=== PATIENT | male | born 1975 | race Caucasian/White ===

== ENCOUNTER 2023-05-08 11:43 | Emergency (ER) | payer OTHER, SELFPAY ==
[2023-05-08] VITALS (14 sets, daily range): BP systolic 148–176; BP diastolic 88–122; PULSE 76–83; RESP 11–21; TEMP 36.8; O2SAT 91–98; BMI 32.3
--- NOTE | 2023-05-08 11:54 | XR_ITS ---
The [address] [address] Patient Name: SHEEBA LOCKHART MRN: [id number] date: 1975 Sex: M Assigned Patient Location: ED.MAIN Current Patient Location: ER Accession/Order Number: [id number] Exam Date: 05/08/2023 12:48 Report Date: 05/08/2023 13:23 At the request of: MARTITA ESPINOZA Procedure: XR ribs RT min 3V w CXR1V EXAMINATION: XR ribs RT min 3V w CXR1V 05/08/2023 10:20 AM PDT HISTORY: pain after stretching COMPARISONS: None. FINDINGS: Lines and tubes: None. Heart and mediastinum: The heart and the mediastinum are normal for technique. Lungs and pleura: Mild atelectasis and/or scarring at the left costophrenic angle. No pulmonary edema. There is no pleural effusion or pneumothorax. Bones: No acute osseous abnormality. RIGHT RIBS: No displaced rib fracture. Miscellaneous: Calcification projecting over the left kidney measuring 7 mm. XR/XR ribs RT min 3V w CXR1V IMPRESSION: 1. Mild atelectasis and/or scarring at the left costophrenic angle. 2. No displaced rib fracture on the right. 3. There is a 7 mm calcification projecting of the left kidney which could represent a kidney stone. Electronically authenticated by: YAMINI ALBARADO Date: 05/08/2023 13:23
--- NOTE | 2023-05-08 13:27 | ED.CHESTPAI1 ---
HPI - Chest Pain General Chief Complaint: Chest Pain Stated Complaint: CHEST PAIN Time Seen by Provider: 05/08/23 11:50 Source: patient Mode of arrival: walk-in History of Present Illness HPI narrative: 47-year-old male presents for pain in his right chest. It started today when he was stretching with his arms above his head. He did not fall and nothing struck him in his chest. It's worse in certain positions. No fever or cough or back pain. No pain on the left side. Related Data Home Medications Medication Instructions Recorded Confirmed No Known Home Medications 05/08/23 05/08/23 Allergies Allergy/AdvReac Type Severity Reaction Status Date / Time No Known Drug Allergies Allergy Verified 05/08/23 11:46 Review of Systems ROS Narrative A ten point review of systems is negative except as noted above. Exam Narrative Exam Narrative: Nurses note and vital signs reviewed and patient is not hypoxic. General: The patient appears well and in no apparent distress. Patient is resting comfortably on cart. Skin: Warm, dry, no pallor noted. There is no rash noted. Head: Normocephalic, atraumatic Eye: Normal conjunctiva, no drainage Ears, Nose, Mouth, and Throat: oral mucosa is moist. Nares patent. Cardiovascular: Regular Rate and Rhythm Respiratory: Patient is in no distress, no accessory muscle use, lungs are clear to auscultation, no wheezing, rales or rhonchi; no chest wall crepitus bruise rash or abrasion. Back: non-tender GI: Normal bowel sounds, no tenderness to palpation, no masses appreciated. No rebound, guarding, or rigidity noted. Musculoskeletal: The patient has no evidence of calf tenderness, no pitting edema, symmetrical pulses noted bilaterally Neurological: A&O, normal speech Psychiatric: Cooperative Constitutional Vital Signs, click to edit/add: Last Vital Signs Temp 98.2 F 05/08/23 11:46 Pulse 82 05/08/23 11:46 Resp 20 05/08/23 11:46 BP 155/122 H 05/08/23 11:46 Pulse Ox 98 05/08/23 11:46 O2 Del Method Room Air 05/08/23 11:46 Course Vital Signs Vital signs: Vital Signs Temperature 98.2 F 05/08/23 11:46 Pulse Rate 82 05/08/23 11:46 Respiratory Rate 20 05/08/23 11:46 Blood Pressure 155/122 H 05/08/23 11:46 Pulse Oximetry 98 05/08/23 11:46 Oxygen Delivery Method Room Air 05/08/23 11:46 Temperature 98.2 F 05/08/23 11:46 Pulse Rate 82 05/08/23 11:46 Respiratory Rate 20 05/08/23 11:46 Blood Pressure 155/122 H 05/08/23 11:46 Pulse Oximetry 98 05/08/23 11:46 Oxygen Delivery Method Room Air 05/08/23 11:46 MDM - Chest Pain MDM Narrative Medical decision making narrative: rib x-rays are negative and he was recommended ice and Motrin. No evidence of pneumothorax. Treatment diagnosis and follow-up were discussed with the patient Differential Diagnosis Differential diagnosis: Likely fracture of rib, pneumothorax and other (chest wall muscle strain) Imaging Data right ribs: Radiologist's impression: no acute findings Discharge Plan Discharge Chief Complaint: Chest Pain Clinical Impression: Acute chest wall pain Patient Disposition: Home, Self-Care Time of Disposition Decision: 13:27 Condition: Good Mode of Transportation: Private Vehicle Prescriptions / Home Meds: No Action No Known Home Medications Instructions: Chest Wall Pain (ED) Stand Alone Forms: Portal Instructions Referrals: Physician,Non-Staff, MD [Primary Care Provider] - 1 week
--- NOTE | 2023-05-08 14:52 | ECG_ITS ---
The 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
== END 2023-05-08 13:37 | disposition home or self-care (01) ==
PROVIDERS: Emergency Provider Emergency Medicine
DX: R07.89 Other chest pain (principal)
CPT/HCPCS: 71101; 93005; 99283

== ENCOUNTER 2023-05-30 09:53 | Emergency (ER) | payer SELFPAY ==
[2023-05-30 09:57] VITALS: BP 138/93; PULSE 91; RESP 18; TEMP 36.8; O2SAT 98; BMI 35.6
--- NOTE | 2023-05-30 10:25 | ED.SKABFB1 ---
HPI - Skin/Abscess/Foreign Bdy General Chief complaint: Skin/Abscess/Foreign Body Stated complaint: LUMP UNDER RIGHT ARMPIT Time Seen by Provider: 05/30/23 10:12 Source: patient Mode of arrival: walk-in History of Present Illness HPI narrative: This patient's here with complaint of a sore tender swollen red area underneath his right axillary area. He has no history of diabetes. He's not had previous MRSA infections. He says occasionally he gets skin infections but they usually drain on their own. He is not on any new medication. He has not had a fever shakes or chills.no lightheadedness nausea vomiting or shortness of breath Related Data Home Medications Medication Instructions Recorded Confirmed No Known Home Medications 05/08/23 05/08/23 Allergies Allergy/AdvReac Type Severity Reaction Status Date / Time No Known Drug Allergies Allergy Verified 05/08/23 11:46 PFSH PFSH Social History Smoking status: Current every day smoker Exam Narrative Exam Narrative: awake alert pleasant vital signs are stable. Does not appear ill. Problem focused examination of the extremity The right axillary area has a 5 x 3 tender fluctuant pointing sensitive area in the middle of the axillary area. There is no lymphangitis. The upper pectoral area is unremarkable. Joint range of motion and examination are normal. Constitutional Vital Signs, click to edit/add: Last Vital Signs Temp 98.3 F 05/30/23 09:57 Pulse 91 H 05/30/23 09:57 Resp 18 05/30/23 09:57 BP 138/93 H 05/30/23 09:57 Pulse Ox 98 05/30/23 09:57 Course Vital Signs Vital signs: Vital Signs Temperature 98.3 F 05/30/23 09:57 Pulse Rate 91 H 05/30/23 09:57 Respiratory Rate 18 05/30/23 09:57 Blood Pressure 138/93 H 05/30/23 09:57 Pulse Oximetry 98 05/30/23 09:57 Temperature 98.3 F 05/30/23 09:57 Pulse Rate 91 H 05/30/23 09:57 Respiratory Rate 18 05/30/23 09:57 Blood Pressure 138/93 H 05/30/23 09:57 Pulse Oximetry 98 05/30/23 09:57 MDM - Skin/Abscess/Foreign Bdy MDM Narrative Medical decision making narrative: patient's history and physical findings are consistent with a large abscess in this area. After lidocaine one percent anesthesia locally the wound was prepped with Betadine and a #11 blade was used to make an incision approximately one and half centimeters in the center aspect of the fluctuance. A large, large amount of purulent material was recovered spontaneously. Hemostats were then used to probe deeper brachial further loculations with further purulent drainage. Gauze was placed into the wound. And dressings were applied. He tolerated the procedure well. He will be placed on antibiotics. Cultures have been done. Discharge Plan Discharge Chief Complaint: Skin/Abscess/Foreign Body Clinical Impression: Abscess of skin or subcutaneous tissue Patient Disposition: Home, Self-Care Time of Disposition Decision: 10:33 Prescriptions / Home Meds: No Action No Known Home Medications Additional Instructions: remove packing in 24-48 hours. Warm compresses/doxycycline/Augmentin until cultures are complete Stand Alone Forms: Portal Instructions Referrals: Physician,Non-Staff, MD [Primary Care Provider] - 1 week
[2023-05-30] MEDS: LIDOCAINE HCL 1%-EPINEPHRINE 1:100,000 20 ML MDV INJ (10:36)
== END 2023-05-30 10:47 | disposition home or self-care (01) ==
PROVIDERS: Emergency Provider Emergency Medicine Emergency Medical Services
DX: L02.411 Cutaneous abscess of right axilla (principal); F17.210 Nicotine dependence, cigarettes, uncomplicated
CPT/HCPCS: 10060; 87070; 87150; 87186; 99283

== ENCOUNTER 2023-08-04 09:45 | Emergency (ER) | payer SELFPAY ==
[2023-08-04 09:50] VITALS: BP 137/87; PULSE 78; RESP 16; TEMP 36.7; O2SAT 97; BMI 31.6
--- NOTE | 2023-08-04 10:31 | ED.SKABFB1 ---
HPI - Skin/Abscess/Foreign Bdy General Chief complaint: Skin/Abscess/Foreign Body Stated complaint: UPPER EXTREMITY INJURY Time Seen by Provider: 08/04/23 10:26 Source: patient Mode of arrival: walk-in Limitations: no limitations History of Present Illness HPI narrative: 47-year-old male presents for a red painful swollen area in his right axilla. He's had it for a week. No drainage. He's had this once before and had to have it cut open. The pain is moderate and worse when he touches it. Related Data Previous Rx's Medication Instructions Recorded cephalexin 500 mg capsule 500 mg PO QID 10 days #40 caps 08/04/23 sulfamethoxazole 800 1 tab PO BID 10 days #20 tabs 08/04/23 mg-trimethoprim 160 mg tablet (Bactrim DS) Allergies Allergy/AdvReac Type Severity Reaction Status Date / Time No Known Drug Allergies Allergy Verified 08/04/23 09:53 Review of Systems ROS Narrative A ten point review of systems is negative except as noted above. PFSH PFSH Social History Smoking status: Current every day smoker Exam Narrative Exam Narrative: Nurses note and vital signs reviewed and patient is not hypoxic. General: The patient appears well and in no apparent distress. Patient is resting comfortably on cart. Skin: Warm, dry, no pallor noted. in the right axilla is erythematous raised firm area approximately 1 x 1.5 . There is no fluctuance or open area or drainage. Head: Normocephalic, atraumatic Eye: Normal conjunctiva, no drainage Ears, Nose, Mouth, and Throat: oral mucosa is moist. Nares patent. Cardiovascular: Regular Rate and Rhythm Respiratory: Patient is in no distress, no accessory muscle use, lungs are clear to auscultation, no wheezing, rales or rhonchi Back: non-tender GI: nontender Musculoskeletal: The patient has no evidence of calf tenderness, no pitting edema, symmetrical pulses noted bilaterally Neurological: A&O, normal speech Psychiatric: Cooperative Constitutional Vital Signs, click to edit/add: Last Vital Signs Temp 98.1 F 08/04/23 09:50 Pulse 78 08/04/23 09:50 Resp 16 08/04/23 09:50 BP 137/87 08/04/23 09:50 Pulse Ox 97 08/04/23 09:50 O2 Del Method Room Air 08/04/23 09:50 Course Vital Signs Vital signs: Vital Signs Temperature 98.1 F 08/04/23 09:50 Pulse Rate 78 08/04/23 09:50 Respiratory Rate 16 08/04/23 09:50 Blood Pressure 137/87 08/04/23 09:50 Pulse Oximetry 97 08/04/23 09:50 Oxygen Delivery Method Room Air 08/04/23 09:50 Temperature 98.1 F 08/04/23 09:50 Pulse Rate 78 08/04/23 09:50 Respiratory Rate 16 08/04/23 09:50 Blood Pressure 137/87 08/04/23 09:50 Pulse Oximetry 97 08/04/23 09:50 Oxygen Delivery Method Room Air 08/04/23 09:50 MDM - Skin/Abscess/Foreign Bdy MDM Narrative Medical decision making narrative: at this point I do not feel that incision and drainage is indicated. He was offered IV antibiotic but doesn't want it. He is prescribed Bactrim and Keflex and was advised warm compresses. He'll return symptoms worsen. Treatment diagnosis and follow-up were discussed with the patient. Differential Diagnosis Differential diagnosis: Likely abscess of skin or subcutaneous tissue and other (folliculitis, cellulitis, hidradenitis) Discharge Plan Discharge Chief Complaint: Skin/Abscess/Foreign Body Clinical Impression: Abscess of axilla, right Patient Disposition: Home, Self-Care Time of Disposition Decision: 10:30 Condition: Good Mode of Transportation: Private Vehicle Prescriptions / Home Meds: New sulfamethoxazole-trimethoprim [Bactrim DS] 800-160 mg tablet 1 tab PO BID 10 Days Qty: 20 0RF cephalexin 500 mg capsule 500 mg PO QID 10 Days Qty: 40 0RF Instructions: Abscess (ED) Stand Alone Forms: Portal Instructions Referrals: Physician,Non-Staff, MD [Primary Care Provider] - 1 week
== END 2023-08-04 10:44 | disposition home or self-care (01) ==
PROVIDERS: Emergency Provider Emergency Medicine
DX: L02.411 Cutaneous abscess of right axilla (principal); F17.210 Nicotine dependence, cigarettes, uncomplicated
CPT/HCPCS: 99283

== ENCOUNTER 2023-11-19 12:23 | Emergency (ER) | payer SELFPAY ==
[2023-11-19 12:30] VITALS: BP 149/98; PULSE 97; RESP 16; TEMP 36.8; O2SAT 97; BMI 34.4
--- NOTE | 2023-11-19 12:38 | XR_ITS ---
The [address] [address] Patient Name: SHEEBA LOCKHART MRN: [id number] date: 1975 Sex: M Assigned Patient Location: ER Current Patient Location: ER Accession/Order Number: [id number] Exam Date: 11/19/2023 12:45 Report Date: 11/19/2023 13:09 At the request of: MARTITA ESPINOZA Procedure: XR ankle LT min 3V PROCEDURE: XR ankle LT min 3V HISTORY: pain, twisted 3 weeks ago ; left ankle pain COMPARISON: XR ankle left 11/04/2023 FINDINGS: BONES:No fracture, dislocation, or significant arthropathy. Stable separate ossification along dorsal margin of navicular bone; ununited secondary ossification center versus sequela of remote injury. SOFT TISSUES:No visible soft tissue swelling. EFFUSION:None visible. OTHER: Negative. XR/XR ankle LT min 3V IMPRESSION: 1. No acute bone abnormality. 2. Decreased soft tissue swelling since prior study. Electronically authenticated by: JANIS LOYA Date: 11/19/2023 13:09
--- OUTSIDE RECORDS SUMMARY | 2023-11-19 12:38 | XMS_ITS | CCD ---
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 Attending Unav ailable MELE, PHYSICIAN Primary Care Unavailable KAREN HOPE JR. Admitting Unav ailable NO, PHYSICIAN Primary Care Unavailable GLENN NAVARRO Attending Unavailable No, Physician Primary Care Provider Unavailabl e Unavailable Primary Care Provider Unavailabl e Unavailable Primary Care Provider Unavailabl e Unavailable Primary Care Provider Unavailabl e JENNIE JARQUIN Attending Unavailable Medications Current Medications Medication Drug Class(es) Dates Sig (Normalized) Sig (Original) bacitracin 0.5 unt/mg topical ointment (2 sources) Start: 09-09-2020 bacitracin 500 unit/gram ointment Apply topically 2 (two) times a day . 15 g 0 09/09/2020 Active Start: 08-09-2019 End: 08-09-2019 bacitracin zinc ointment Completed/Discontinued Medications Medication Drug Class(es) Dates Sig (Normalized) Sig (Original) cephalexin 250 mg oral capsule (2 sources) Cephalosporin Antibacterial Start: 08-09-2019 End: 08-09-2019 cephALEXin (KEFLEX) capsule 250 mg Start: 08-09-2019 End: 08-14-2019 take 1 capsule by mouth four times daily cephALEXin (KEFLEX) 250 MG capsule Take 1 capsule by mouth 4 times daily for 5 days 20 capsule 0 08/09/2019 08/14/2019 Active 1 ml ketorolac tromethamine 30 mg/ml cartridge (1 source) Nonsteroidal Anti-inflammatory Drug, Cyclooxygenase Inhibitor Start: 08-20-2020 End: 08-20-2020 ketorolac (TORADOL) injection 30 mg naproxen 500 mg oral tablet (1 source) Nonsteroidal Anti-inflammatory Drug Start: 01-25-2019 End: 08-09-2019 take 1 tablet by mouth twice daily naproxen (NAPROSYN) 500 MG tablet Take 1 tablet by mouth 2 times daily 20 tablet 0 01/25/2019 08/09/2019 Discontinued (Therapy completed) ondansetron 4 mg disintegrating oral tablet (2 sources) Serotonin-3 Receptor Antagonist Start: 05-08-2022 End: 10-29-2022 take 1 tablet by mouth every eight hours as needed for nausea ondansetron (ZOFRAN ODT) 4 MG disintegrating tablet Take 1 tablet by mouth every 8 hours as needed for Nausea or Vomiting 15 tablet 0 05/08/2022 10/29/2022 Discontinued (LIST CLEANUP) 2 ml prochlorperazine 5 mg/ml injection (1 source) Phenothiazine Start: 08-20-2020 End: 08-20-2020 prochlorperazine (COMPAZINE) injection 10 mg 50 ml sodium chloride 9 mg/ml injection (1 source) Start: 08-20-2020 End: 08-20-2020 0.9 % sodium chloride bolus Problems Active Problems Problem Classification Problem Date Documented Date Episodic/Chronic Abdominal pain (1 source) Left flank pain; Translations: [Unspecified abdominal pain] Episodic Calculus of urinary tract (1 source) Renal colic; Translations: [Unspecified renal colic] Episodic Essential hypertension (1 source) Essential hypertension; Translations: [Essential hypertension] Chronic Headache; including migraine (1 source) Acute headache; Translations: [Acute nonintractable headache, unspecified headache type] Open wounds of extremities (2 sources) Laceration of finger; Translations: [Laceration of index finger] Episodic Other aftercare (1 source) Encounter for removal of sutures; Translations: [Visit for suture removal] Episodic Residual codes; unclassified (1 source) Tobacco user; Translations: [Tobacco abuse] Chronic Sprains and strains (1 source) Sprain of unspecified ligament of left ankle, initial encounter; Translations: [Sprain of unspecified ligament of left ankle, initial encounter] Onset: 11-04-2023 Episodic Unclassified (1 source) Work accident / drug test Onset: 03-25-2023 Viral infection (1 source) Disease caused by 2019-nCoV; Translations: [COVID-19] Episodic Past or Other Problems Problem Classification Problem Date Documented Da te Episodic/Chronic Open wounds of extremities (1 source) Laceration of hand; Translations: [Laceration of left hand without foreign body, initial encounter] Episodic Results Test Name Value Interpretation Reference Range Facility XR ANKLE LEFT (MIN 3 VIEWS)o n 11-04-2023 XR ANKLE LEFT (MIN 3 VIEWS) EXAM: XR FOOT LEFT (MIN 3 VIEWS), XR ANKLE LEFT (MIN 3 VIEWS) HISTORY: injury COMPARISON: None. TECHNIQUE: 3 views of the left foot and 3 views of the left ankle FINDINGS: Left foot: There is no evidence of fracture or dislocation. There are no lytic or blastic bony lesions. There is normal mineralization. There is mild lateral soft tissue swelling which is better seen on the ankle series. There are no other soft tissue abnormalities. Left ankle: There is mild soft tissue swelling overlying the lateral malleolus. There are no fractures or dislocations. There are no lytic or blastic bony lesions. There is normal mineralization. IMPRESSION: Mild lateral soft tissue swelling. No evidence of acute osseous injury. Interpreted by: Po Tucker MD Signed by: Po Tucker MD 11/04/23 Final result Normal [facility] XR FOOT LEFT (MIN 3 VIEWS)on 11-04-2023 XR FOOT LEFT (MIN 3 VIEWS) EXAM: XR FOOT LEFT (MIN 3 VIEWS), XR ANKLE LEFT (MIN 3 VIEWS) HISTORY: injury COMPARISON: None. TECHNIQUE: 3 views of the left foot and 3 views of the left ankle FINDINGS: Left foot: There is no evidence of fracture or dislocation. There are no lytic or blastic bony lesions. There is normal mineralization. There is mild lateral soft tissue swelling which is better seen on the ankle series. There are no other soft tissue abnormalities. Left ankle: There is mild soft tissue swelling overlying the lateral malleolus. There are no fractures or dislocations. There are no lytic or blastic bony lesions. There is normal mineralization. IMPRESSION: Mild lateral soft tissue swelling. No evidence of acute osseous injury. Interpreted by: Po Tucker MD Signed by: Po Tucker MD 11/04/23 Final result Normal [facility] Microscopic Urinalysison - [facility] RBC, UA 0 TO 2 [facility] WBC, UA NONE SEEN 0 /HPF [facility] Urinalysison 10-29-2022 Bilirubin Urine Negative NEGATIVE [facility] Color, UA Yellow Yellow [facility] Glucose, Ur Negative NEGATIVE [facility] Interpretation and review of laboratory results Abnormal [facility] Ketones Ql (U) Negative NEGATIVE [facility] Leukocyte esterase Test strip Ql (U) Negative NEGATIVE [facility] Nitrite, Urine Negative NEGATIVE [facility] pH, UA 6.0 5.0 - 8.0 [facility] Protein, UA Negative NEGATIVE [facility] Specific [place], UA 1.020 1.005 - 1.030 [facility] Turbidity UA Clear Clear [facility] Urinalysis Comments [facility] Urine Hgb TRACE Abnormal NEGATIVE [facility] Urobilinogen, Urine Normal Normal [facility] COVID-19, Rapidon 05-08-2022 Interpretation and review of laboratory results Abnormal [facility] SARS-CoV-2 (COVID-19) RNA CHRISTINE+probe Ql (Unsp spec) Detected Abnormal Not Detected [facility] Comment on above: Rapid NAAT: The specimen is POSITIVE for SARS-Cov-2, the novel coronavirus associated with COVID-19. This test has been authorized by the FDA under an Emergency Use Authorization (EUA) for use by authorized laboratories. The ID NOW COVID-19 assay is designed to detect the virus that causes COVID-19 in patients with signs and symptoms of infection who are suspected of COVID-19. An individual without symptoms of COVID-19 and who is not shedding SARS-CoV-2 virus would expect to have a negative (not detected) result in this assay. Fact sheet for Healthcare Providers: https://www.fda.gov/media/102703/download Fact sheet for Patients: https://www.fda.gov/media/536791/download Methodology: Isothermal Nucleic Acid Amplification Results reported to the appropriate Health Department Specimen Description .NASOPHARYNGEAL SWAB [facility] LACERATION REPAIRon 09-13-20 19 Karen Hope Jr., MD 09/13/2019 1:39 PM Wound extent: Lac Repair Date/Time: 09/13/2019 1:33 PM Performed by: Karen Hope Jr., MD Authorized by: Karen Hope Jr., MD Body area: upper extremity Location details: right long finger Laceration length: 1 cm Tendon involvement: none Vascular damage: no no vascular damage Skin closure: glue Dressing: tube gauze Patient tolerance: Patient tolerated the procedure well with no immediate complications Comments: Patient refused stitches stating I just had them a month or 2 ago and I do not want to go through that again. I told him that I felt suturing the laceration would keep it approximated as best possible, considering it with likely open if he bent the proximal interphalangeal joint; he understood that and and still opted for glue and a bulky tube gauze dressing with no movement of the joint for 48 to 72 hours. [facility] XR HAND LEFT (MIN 3 VIEWS)on 08-09-2019 Soft tissue injury without radiopaque foreign body evident. [place], [place] LEFT HAND AP, LATERAL, AND OBLIQUE 08/09/2019 CLINICAL INDICATION: Cut hand with glass. FINDINGS: A soft tissue injury is evident but a radiopaque foreign body is not seen. No fracture or bone destructive focus is identified. [place], [place] Matheus, M[facility] Incoming Radiant Results From [facility] - 08/09/2019 7:46 PM EST LEFT HAND AP, LATERAL, AND OBLIQUE 08/09/2019 CLINICAL INDICATION: Cut hand with glass. FINDINGS: A soft tissue injury is evident but a radiopaque foreign body is not seen. No fracture or bone destructive focus is identified. IMPRESSION: Soft tissue injury without radiopaque foreign body evident. [place] Vital Signs Date Time Vital Sign Value Performing Clinician Facility 10-29-2022 15:21-0500 Body height 177.8 cm Manny Snyder MD Work Phone: [facility] 10-29-2022 15:21-0500 Body mass index (BMI) [Ratio] 33.72 kg/m2 Manny Snyder MD Work Phone: [facility] 10-29-2022 15:21-0500 Body temperature 98.91 [degF] Manny Snyder MD Work Phone: [facility] 10-29-2022 15:21-0500 Body weight 106.59 kg Manny Snyder MD Work Phone: [facility] 10-29-2022 15:21-0500 Diastolic blood pressure 89 mm[Hg] [facility] 10-29-2022 15:21-0500 Heart rate 93 /min Manny Snyder MD Work Phone: [facility] 10-29-2022 15:21-0500 Respiratory rate 18 /min Manny Snyder MD Work Phone: [facility] 10-29-2022 15:21-0500 SaO2% (BldA) [Mass fraction] 99 % Manny Snyder MD Work Phone: [facility] 10-29-2022 15:21-0500 Systolic blood pressure 161 mm[Hg] Manny Snyder MD Work Phone: [facility] 05-08-2022 12:54-0400 Body height 177.8 cm Félix Wesley MD Work Phone: [facility] 05-08-2022 12:54-0400 Body mass index (BMI) [Ratio] 31.54 kg/m2 Félix Wesley MD Work Phone: [facility] 05-08-2022 12:54-0400 Body temperature 98.71 [degF] Félix Wesley MD Work Phone: [facility] 05-08-2022 12:54-0400 Body weight 99.7 kg Félix Wesley MD Work Phone: [facility] 05-08-2022 12:54-0400 Diastolic blood pressure 93 mm[Hg] Félix Wesley MD Work Phone: [facility] 05-08-2022 12:54-0400 Heart rate 76 /min Félix Wesley MD Work Phone: [facility] 05-08-2022 12:54-0400 Respiratory rate 20 /min Félix Wesley MD [facility] 05-08-2022 12:54-0400 SaO2% (BldA) [Mass fraction] 98 % Félix Wesley MD Work Phone: [facility] 05-08-2022 12:54-0400 Systolic blood pressure 150 mm[Hg] Félix Wesley MD [facility] 09-21-2020 09:08-0500 BMI (Body Mass Index) 31.57 kg/m2 [facility] 09-21-2020 09:08-0500 Body Temperature 98.91 [degF] [employer] [place] , [place] 09-21-2020 09:08-0500 Body weight 99.79 kg Ben [facility] [facility] , [place] 09-21-2020 09:08-0500 BP Diastolic 82 mm[Hg] [facility] [place] 09-21-2020 09:08-0500 BP Systolic 137 mm[Hg] [facility] [place] 09-21-2020 09:08-0500 Height 177.8 cm [facility] [place] 09-21-2020 09:08-0500 Pulse (Heart Rate) 84 /min Ben [facility] [facility], [place] 09-21-2020 09:08-0500 Pulse Oximetry 94 % [employer] [facility] , [place] 09-21-2020 09:08-0500 Respiratory Rate 18 /min [employer] [place] 09-09-2020 12:16-0500 Pulse Oximetry 96 % Glenn Navarro [facility] 09-09-2020 12:13-0500 BMI (Body Mass Index) 31.57 kg/m2 Glenn Navarro [facility] 09-09-2020 12:13-0500 Body Temperature 98.29 [degF] Glenn Navarro [facility] 09-09-2020 12:13-0500 Body weight 99.79 kg Glenn Navarro [facility] 09-09-2020 12:13-0500 BP Diastolic 80 mm[Hg] Glenn Navarro [facility] 09-09-2020 12:13-0500 BP Systolic 152 mm[Hg] [facility] 09-09-2020 12:13-0500 Height 177.8 cm [facility] 09-09-2020 12:13-0500 Pulse (Heart Rate) 99 /min [facility] 09-09-2020 12:13-0500 Respiratory Rate 16 /min [facility] 08-20-2020 18:52-0500 BMI (Body Mass Index) 31.28 kg/m2 [facility] [place] 08-20-2020 18:52-0500 Body Temperature 99 [degF] [facility] [place] 08-20-2020 18:52-0500 Body weight 98.88 kg [facility] 08-20-2020 18:52-0500 BP Diastolic 88 mm[Hg] [facility] [place] 08-20-2020 18:52-0500 BP Systolic 161 mm[Hg] [facility] [place] 08-20-2020 18:52-0500 Height 177.8 cm [facility] [place] 08-20-2020 18:52-0500 Pulse (Heart Rate) 73 /min [facility] [place] 08-20-2020 18:52-0500 Pulse Oximetry 95 % [facility] 08-20-2020 18:52-0500 Respiratory Rate 16 /min [facility] 09-13-2019 12:13-0500 BMI (Body Mass Index) 32.49 kg/m2 Karen [facility] 09-13-2019 12:13-0500 Body Temperature 98.49 [degF] Karen [facility] 09-13-2019 12:13-0500 Body weight 99.79 kg [facility] 09-13-2019 12:13-0500 BP Diastolic 86 mm[Hg] [facility] 09-13-2019 12:13-0500 BP Systolic 152 mm[Hg] [facility] 09-13-2019 12:13-0500 Height 175.3 cm [facility] 09-13-2019 12:13-0500 Pulse (Heart Rate) 86 /min [facility] 09-13-2019 12:13-0500 Pulse Oximetry 97 % [facility] 09-13-2019 12:13-0500 Respiratory Rate 16 /min [facility] 08-09-2019 18:14-0500 BMI (Body Mass Index) 33.15 kg/m2 [facility]Health[facility] [place] 08-09-2019 18:14-0500 Body Temperature 97.39 [degF] [facility] [place] 08-09-2019 18:14-0500 Body weight 104.78 kg [place] 08-09-2019 18:14-0500 BP Diastolic 73 mm[Hg] [place] 08-09-2019 18:14-0500 BP Systolic 164 mm[Hg] [place] 08-09-2019 18:14-0500 Pulse (Heart Rate) 84 /min [place], [place] 08-09-2019 18:14-0500 Pulse Oximetry 97 % [place] 08-09-2019 18:14-0500 Respiratory Rate 20 /min [facility] [place] Encounters Encounter Date Encounter Type Care Provider Facility Start: 11-04-2023 End: 11-04-2023 Emergency department patient visit JENNIE Dos Santos [facility] Start: 03-25-2023 End: 03-25-2023 Emergency department patient visit JENNIE [facility] Start: 10-29-2022 End: 10-29-2022 Emergency department patient visit Manny Snyder MD Work Phone: [facility] ED Comment on above: Left flank pain (Naomi kristian Dx); Renal colic Start: 05-08-2022 End: 05-08-2022 Emergency department patient visit Félix Wesley MD Work Phone: [facility] ED Comment on above: COVID (Primary Dx) Start: 09-21-2020 End: 09-21-2020 Emergency department patient visit Ben Chu Work Phone: [facility] ED Comment on above: Visit for suture rem oval (Primary Dx) Start: 09-09-2020 End: 09-09-2020 Emergency department patient visit PHYSICIAN MELE [facility] Start: 09-09-2020 End: 09-09-2020 Emergency department patient visit Glenn Navarro Work Phone: [facility] Emergency Department Comment on above: Laceration of right index finger without foreign body without damage to nail, initial encounter (Primary Dx) Start: 08-20-2020 End: 08-20-2020 Emergency department patient visit Manny Snyder Work Phone: [facility] ED Comment on above: Acute nonintractable headache, unspecified headache type (Primary Dx) Start: 09-13-2019 End: 09-13-2019 Emergency department patient visit KAREN HOPE [facility] Start: 09-13-2019 End: 09-13-2019 Emergency department patient visit Karen Hope Work Phone: [facility] Emergency Department Comment on above: Laceration of right middle finger without damage to nail, foreign body presence unspecified, initial encounter (Primary Dx) Start: 08-09-2019 End: 08-09-2019 Emergency department patient visit Nereyda Duran Work Phone: [facility] ED Comment on above: Laceration of left h and without foreign body, initial encounter (Primary Dx); Essential hypertension; Tobacco abuse Procedures Date Procedure Procedure Detail Performing Clinician Start: 10-29-2022 Urinalysis microscop ic only Manny Snyder MD Work Phone: Start: 10-29-2022 Urnls dip stick/tabl et rgnt auto w/o microscopy Manny Snyder MD Work Phone: Start: 05-08-2022 COVID-19, RAPID Félix Wesley MD Work Phone: Start: 09-13-2019 Procedure on wound Harley Hope Work Phone: Start: 08-09-2019 Radex hand minimum 3 views Nereyda Duran Work Phone: Plan of Treatment Date Care Activity Detail Author Start: 05-30-2022 Influenza vaccination Flu vaccine (# 1) [facility] Start: 04-29-2022 Influenza vaccination Flu vaccine (# 1) [facility] Start: 05-30-2020 Influenza vaccination Flu vaccine (# 1) [place] Start: 2019 Screening for malign ant neoplasm of colon [facility] Start: 05-30-2019 Influenza vaccination Flu vaccine (# 1) [place] Start: 2014 Diabetes screen Diabetes screen [place], [place] Start: 2014 Lipid panel [facility] Start: 2014 Lipid screen Lipid screen [place], [place] Start: 2009 Diabetes screen Diabetes screen [facility] Start: 1993 DTaP/Tdap/Td vaccine (1 - Tdap) DTaP/Tdap/Td vaccine (1 - Tdap) [facility] Start: 1992 Hepatitis C screening Hepatitis C sc reen [facility] Start: 1989 HIV screen HIV screen [place], [place] Start: 1989 HIV screening HIV screen [facility] Start: 1986 Depression Screen Depression Screen [facility] Start: 1985 DTaP/Tdap/Td vaccine (1 - Tdap) DTaP/Tdap/Td vaccine (1 - Tdap) [place] Start: 1980 Pneumococcal 0-64 ye ars Vaccine (1 - PCV) Pneumococcal 0-64 years Vaccine (1 - PCV) [facility] Start: 1980 Pneumococcal 0-64 ye ars Vaccine (1 of 1 - PPSV23) Pneumococcal 0-64 years Vaccine (1 of 1 - PPSV23) [place] Start: 03-11-1975 COVID-19 Vaccine (#1) COVID-19 Vacci ne (#1) [facility] Start: 1974 Hepatitis C screening Hepatitis C sc reen [place], [place] Payers Date Payer Category Payer Unknown [id number] 2019 Medicaid [employer] [facility] x[facility]xx 2019-Present xxxxxxxxxxx [id number] 2019 Medicaid [employer] [facility] [id number] 2019-Present [id number] 2019 Unknown [id number] 2018 Unknown [facility] xxxxxxxxxxxx 2018-Present [phone] [address] [place] [address] xxxxxxxxxxxx [id number] 1974 Unknown [id number] 1974 Unknown [id number] 1974 Unknown [id number] 1974 Unknown [id number] Social History Date Type Detail Facility Start: 09-13-2019 End: 10-29-2022 Tobacco smoking status NHIS Current every day smoker [place] Start: 09-13-2019 End: 10-29-2022 Cigarettes smoked current (pack per day) - Reported ALIYA Scruggs Start: 09-13-2019 End: 09-09-2020 Alcohol intake Current drinker of alcohol (finding) [facility] Start: 09-13-2019 Alcohol Comment occasionally [facility] Start: 1975 Sex Assigned At Not on file ALIYA Kilgore History of tobacco use Cigarette Smoker M ALIYA Lockwood Start: 08-20-2020 End: 10-29-2022 Tobacco use and exposure Never used ALIYA Scruggs Start: 08-20-2020 End: 10-29-2022 Alcohol intake Ex-drinker (finding) Sravanthi Scruggs Start: 04-28-2022 End: 10-29-2022 Exposure to SARS-CoV-2 (event) Not sure ALIYA Scruggs Start: 10-29-2022 History SDOH Alcohol Frequency 1 [facility] Phone: Start: 10-29-2022 History SDOH Alcohol Std Drinks 0 [facility] Phone: Hospital Discharge instructions 05-08-2022 Discharge InstructionsAttachments Note Date & Type Note Facility 05-08-2022 Hospital Discharg e instructions Félix Wesley MD - 05/08/2022 1:24 PM EDT Tylenol or Motrin for aches or pains. Try [id number] cough medication like Mucinex or Robitussin. Take Zofran for any nausea. Follow-up with outpatient primary care referral. You are set to quarantine for 5 days of total symptoms at home followed by masking the following 5 days The following attachments cannot be sent through Care Everywhere.Coronavirus Disease (COVID-19): General Info (Indonesian)documented in this encounter [facility] Phone: Evaluation note Note Date & Type Note Facility Evaluation note Diagnosis COVID- Primary documented in this encounter [facility] Phone: Evaluation note Note Date & Type Note Facility Evaluation note Diagnosis Left flank pain- Primary Abdominal pain, unspecified site Renal colic documented in this encounter LIZETTE BOATENG [facility] Phone: Discharge Instructions * Attachments The following attachments cannot be sent through Care Everywhere. * Lacerations: Open (Indonesian) documented in this encounter* Attachments The following attachments cannot be sent through Care Everywhere. * Headache (Indonesian) documented in this encounter* Attachments The following attachments cannot be sent through Care Everywhere. * Headache (Indonesian) documented in this encounter* Attachments The following attachments cannot be sent through Care Everywhere. * Hand Laceration: Stitches (Indonesian) documented in this encounter* Attachments The following attachments cannot be sent through Care Everywhere. * Stitches and [place] Removal: General Info (Indonesian) documented in this encounter* Attachments The following attachments cannot be sent through Care Everywhere. * Lacerations: Stitches (Indonesian) * Smoking: Stopping (Indonesian) * Hypertension: General Info (Indonesian) documented in this encounter Assessments Diagnosis Laceration of right middle finger without damage to nail, foreign body presence unspecified, initial encounter Diagnosis Acute nonintractable headache, unspecified headache type Diagnosis Laceration of right index finger without foreign body without damage to nail, initial encounter- Primary Diagnosis Visit for suture removal- Primary Encounter for removal of sutures Diagnosis Laceration of left hand without foreign body, initial encounter- Primary Essential hypertension Unspecified essential hypertension Tobacco abuse Tobacco use disorder Advance Directives No Advanced Directives Records FoundDocuments on File Type Date Recorded 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 Advance Directives and Livin g Will 09/13/2019 12:30 PM Documents on File Type Date Recorded 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 ACP-Advance Directive ACP-Power of Tool Liaison Documents on File Type Date Recorded 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 Advance Directives and Livin g Will 09/09/2020 12:41 PM Documents on File Type Date Recorded 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 Advance Directives and Living Will Power of Tool Liaison Summary Purpose Family History No Family History Records FoundNo Family History Records Found Additional Source Comments Reason for Visit (unrecogniz ed section and content) Reason Comments Extremity Laceration Reason Comments Migraine Patient arrives to E R today with complaints of a severe headache with photophobia and nausea that began this morning. Pt reports it feels like a tension headache . Reason Comments Finger Injury R INDEX Reason Comments Wound Check Sutures need removed , sutures applied on 09/14/2020. Reason Comments Laceration over left fiftth fin alfred Reason Comments Illness States he just hasn 't felt good since yesterday. General complaints of headache, nausea, body aches, and fatigue Reason Comments Letter for School/Work Pt states he felt like he had a kidney stone last night and is here today for a work note because he left work early - minimal pain to the left flank Sondra London RN - 09/13/2019 1:59 PM Karen Fontanez Jr., MD - 09/13/2019 12:22 PM Sondra Dodson RN - 09/13/2019 12:10 PM Balaji Colunga RN - 09/09/2020 12:39 PM EST ED Notes (unrecognized secti on and content) Bulky dressing applied to right middle finger, pt tolerated as expected. Associated Order(s): Lac Repair ED PROVIDER NOTE [facility] NAME: Sheeba Lockhart AGE: 44 y.o. : 1975 VISIT DATE: 09/13/2019 CSN: [id number] PCP: Physician No Chief Complaint Patient presents with Extremity Laceration This [id number]-uhsfeyow male sustained a laceration to his right middle finger with a knife short time ago. He had a tetanus shot 2 months ago when he had a previous laceration. Past Medical History: Diagnosis Date Anxiety Depression Past Surgical History: Procedure Laterality Date CYSTOSCOPY W/ LASER LITHOTRIPSY History reviewed. No pertinent family history. Social History Socioeconomic History Marital status: Spouse name: Not on file Number of children: Not on file Years of education: Not on file Highest education level: Not on file Occupational History Not on file Social Needs Financial resource strain: Not on file Food insecurity Worry: Not on file Inability: Not on file Transportation needs Medical: Not on file Non-medical: Not on file Tobacco Use Smoking status: Current Every Day Smoker Packs/day: 1.50 Smokeless tobacco: Never Used Substance and Sexual Activity Alcohol use: Yes Comment: occasionally Drug use: Yes Types: Marijuana Comment: last use 3 days ago Sexual activity: Not on file Lifestyle Physical activity Days per week: Not on file Minutes per session: Not on file Stress: Not on file Relationships Social connections Talks on phone: Not on file Gets together: Not on file Attends baptism service: Not on file Active member of club or organization: Not on file Attends meetings of clubs or organizations: Not on file Relationship status: Not on file Other Topics Concern Not on file Social History Narrative Not on file No current outpatient medications on file prior to encounter. No Known Allergies Review of Systems All other systems reviewed and are negative. Patient Vitals for the past 24 hrs: BP Temp Pulse Resp SpO2 Height Weight 09/13/19 1213 (!) 152/86 98.5 F (36.9 C) 86 16 97 % 5' 9 99.8 kg (220 lb) Physical Exam Vitals signs and nursing note reviewed. Constitutional: Appearance: Normal appearance. HENT: Head: Normocephalic and atraumatic. Right Ear: External ear normal. Left Ear: External ear normal. Nose: Nose normal. Mouth/Throat: Mouth: Mucous membranes are moist. Eyes: Extraocular Movements: Extraocular movements intact. Conjunctiva/sclera: Conjunctivae normal. Neck: Musculoskeletal: Normal range of motion. Cardiovascular: Rate and Rhythm: Normal rate. Pulmonary: Effort: Pulmonary effort is normal. Abdominal: General: There is no distension. Musculoskeletal: Normal range of motion. Skin: General: Skin is warm and dry. Comments: There is a 1 cm flap laceration over the proximal interphalangeal joint on the extensor aspect which is well approximated and not bleeding. There is brisk capillary refill in the fingertip and sensation that is intact to light touch distally. Neurological: General: No focal deficit present. Mental Status: He is alert and oriented to person, place, and time. Psychiatric: Mood and Affect: Mood normal. Behavior: Behavior normal. Laboratory & Radiographic Imaging (if done): No results found for this visit on 09/13/19. No orders to display Wound extent: Lac Repair Date/Time: 09/13/2019 1:33 PM Performed by: Karen Hope Jr., MD Authorized by: Karen Hope Jr., MD Body area: upper extremity Location details: right long finger Laceration length: 1 cm Tendon involvement: none Vascular damage: no no vascular damage Skin closure: glue Dressing: tube gauze Patient tolerance: Patient tolerated the procedure well with no immediate complications Comments: Patient refused stitches stating I just had them a month or 2 ago and I do not want to go through that again. I told him that I felt suturing the laceration would keep it approximated as best possible, considering it with likely open if he bent the proximal interphalangeal joint; he understood that and and still opted for glue and a bulky tube gauze dressing with no movement of the joint for 48 to 72 hours. MDM Number of Diagnoses or Management Options Diagnosis management comments: Patient is instructed to have the wound rechecked within 48 to 72 hours and keep it covered clean and dry. If there was change worsening or new concern that arose, he can be reevaluated in the emergency room at any time. The patient has been informed that they may have pre-hypertension or hypertension based on a blood pressure reading in the Emergency Department. I recommend that the patient call the primary care provider listed on their discharge instructions or a physician of their choice as soon as possible to arrange follow-up in the next 4 weeks for further evaluation of possible pre-hypertension or hypertension. . Clinical Impression: 1. Laceration of right middle finger without damage to nail, foreign body presence unspecified, initial encounter ED Disposition None Follow-up Information 1. Bonnie Moody MD. Specialty: Family Medicine Why: TOYIN to schedule appointment in 1-[address] [place] [address] [phone] Contact information for after-discharge care Follow-up information has not been specified. Karen Hope Jr., MD 09/13/19 2316 Pt was cutting meat with a knife this morning, cut right third finger at knuckle, 1cm laceration, active bleeding, skin well approximated, neuro intact. documented in this encounter APPLIED BACITRACIN, NONADHERENT BANDAGE TO R INDEX FINGER. DISCUSSED CARE OF INJURY. DR RAMON GUILLAUME FOR SUTURE PLACEMENT PT STATES HE WAS PROCESSING MEAT WHEN HIS KNIFE ACCIDENTALLY LACERATED R INDEX FINGER 10 MINUTES PRIOR TO ARRIVAL. documented in this encounter (unrecognized sect ion and content) No Status Records FoundNo Status Records Found INFORMATION SOURCE (unrecogn ized section and content) DATE CREATED AUTHOR 2020 [facility] DATE CREATED AUTHOR AUTHOR'S ORGANIZ ATION [facility] Ordered Prescriptions (unrec ognized section and content) Prescription Sig Dispensed Refills Start Date End Da te ondansetron (ZOFRAN ODT) 4 MG disintegrating tablet Take 1 tablet by mouth every 8 hours as needed for Nausea or Vomiting 15 tablet 0 05/08/2022 FOR RECORDS PERTAINING TO PATIENTS WHO ARE OR HAVE BEEN ENROLLED IN A CHEMICAL DEPENDENCY/SUBSTANCEABUSE PROGRAM, SOME INFORMATION MAY BE OMITTED. This clinical summary was aggregated from multiple sources. Caution should be exercised in using it in the provision of clinical care. This summary normalizes information from multiple sources, and as a consequence, information in this document may materially change the coding, format and clinical context of patient data. In addition, data may be omitted in some cases. CLINICAL DECISIONS SHOULD BE BASED ON THE PRIMARY CLINICAL RECORDS. [employer] provides no warranty or guarantee of the accuracy or completeness of information in this document.
--- NOTE | 2023-11-19 12:42 | ED_ITS ---
HPI - Extremity Injury (Lower) General Chief Complaint: Extremity Injury, Lower Stated Complaint: LEFT FOOT PAIN Time Seen by Provider: 11/19/23 12:29 Source: patient Mode of arrival: walk-in Limitations: no limitations History of Present Illness HPI Narrative: 48-year-old male presents to the emergency department for left ankle pain. He twisted it about 3 weeks ago and was seen at another hospital. He reports a negative x-ray. It has been hurting since then and not getting better. The entire ankle hurts. His foot and knee do not hurt and the pain is moderate and worse when he walks. Related Data Previous Rx's Medication Instructions Recorded cephalexin 500 mg capsule 500 mg PO QID 10 days #40 caps 08/04/23 sulfamethoxazole 800 1 tab PO BID 10 days #20 tabs 08/04/23 mg-trimethoprim 160 mg tablet (Bactrim DS) Allergies Allergy/AdvReac Type Severity Reaction Status Date / Time No Known Drug Allergies Allergy Verified 11/19/23 12:33 Review of Systems ROS Narrative A ten point review of systems is negative except as noted above. PFSH PFSH Social History Smoking status: Current every day smoker Exam Narrative Exam Narrative: Nurses note and vital signs reviewed and patient is not hypoxic. General: The patient appears well and in no apparent distress. Patient is resting comfortably on cart. Skin: Warm, dry, no pallor noted. There is no rash noted. Head: Normocephalic, atraumatic Eye: Normal conjunctiva, no drainage Ears, Nose, Mouth, and Throat: oral mucosa is moist. Nares patent. Cardiovascular: Regular Rate and Rhythm Respiratory: Patient is in no distress, no accessory muscle use, lungs are clear to auscultation, no wheezing, rales or rhonchi Back: non-tender GI: Soft and nontender Musculoskeletal: No swelling noted in the left ankle. Skin intact. He has diffuse tenderness. Knee and foot nontender. Neurological: A&O, normal speech Psychiatric: Cooperative Constitutional Vital Signs, click to edit/add: Last Vital Signs Temp 98.3 F 11/19/23 12:30 Pulse 97 H 11/19/23 12:30 Resp 16 11/19/23 12:30 BP 149/98 H 11/19/23 12:30 Pulse Ox 97 11/19/23 12:30 O2 Del Method Room Air 11/19/23 12:30 Course Vital Signs Vital signs: Vital Signs Temperature 98.3 F 11/19/23 12:30 Pulse Rate 97 H 11/19/23 12:30 Respiratory Rate 16 11/19/23 12:30 Blood Pressure 149/98 H 11/19/23 12:30 Pulse Oximetry 97 11/19/23 12:30 Oxygen Delivery Method Room Air 11/19/23 12:30 Temperature 98.3 F 11/19/23 12:30 Pulse Rate 97 H 11/19/23 12:30 Respiratory Rate 16 11/19/23 12:30 Blood Pressure 149/98 H 11/19/23 12:30 Pulse Oximetry 97 11/19/23 12:30 Oxygen Delivery Method Room Air 11/19/23 12:30 MDM - Extremity Injury (Lower) MDM Narrative Medical decision making narrative: X-ray per radiologist is negative. He was offered crutches but does not want them. [place] wrap applied, application checked by me and found to be appropriate, he is neurovascularly intact. He was offered an air splint as well and has 1 at home. Treatment diagnosis and follow-up were discussed thoroughly. Differential Diagnosis Differential diagnosis: Likely ankle sprain and strain and ankle fracture Imaging Data Ankle x-ray: Radiologist's impression: ITS Impressions Ankle X-Ray 11/19/23 12:38 IMPRESSION: 1. No acute bone abnormality. 2. Decreased soft tissue swelling since prior study. Electronically authenticated by: JANIS LOYA Date: 11/19/2023 13:09 Discharge Plan Discharge Chief Complaint: Extremity Injury, Lower Clinical Impression: Left ankle sprain Patient Disposition: Home, Self-Care Time of Disposition Decision: 13:18 Condition: Good Mode of Transportation: Private Vehicle Prescriptions / Home Meds: No Action sulfamethoxazole-trimethoprim [Bactrim DS] 800-160 mg tablet 1 tab PO BID 10 Days Qty: 20 0RF cephalexin 500 mg capsule 500 mg PO QID 10 Days Qty: 40 0RF Instructions: Ankle Sprain (ED) Additional Instructions: Follow-up with Dr. Crow If unable to see him, [facility] in [place] has a podiatry clinic Stand Alone Forms: Portal Instructions Referrals: Physician,Non-Staff, MD [Primary Care Provider] - 1 week
[2023-11-19 13:04] VITALS: BP 138/88; PULSE 86; RESP 18; O2SAT 98
== END 2023-11-19 13:39 | disposition home or self-care (01) ==
PROVIDERS: Emergency Provider Emergency Medicine
DX: S93.402A Sprain of unspecified ligament of left ankle, initial encounter (principal); X50.1XXA Overexertion from prolonged static or awkward postures, initial encounter; F17.200 Nicotine dependence, unspecified, uncomplicated
CPT/HCPCS: 73610; 99283